=== PATIENT | female | born 1985 | race Caucasian/White ===

== ENCOUNTER 2022-07-31 23:34 | Inpatient (IN) | payer BC ==
[~2022-07-31 23:34] MED LIST: Bupivacaine 0.5% 10 ML VIAL ONE
[2022-08-01 00:03] VITALS: BMI 29.2
[2022-08-01] MEDS ORDERED: Ondansetron PF 4 MG/2 ML Vial IVP PRN ×2 (01:22→02:32)
[2022-08-01] MEDS ORDERED: Promethazine HCl 25 MG/ML VIAL IM PRN ×3 (01:22→20:08)
[2022-08-01] MEDS ORDERED: hydrALAZINE 20 MG/ML VIAL SLOW IVP PRN ×2 (01:22→20:08)
[2022-08-01] MEDS ORDERED: Lidocaine 1% (PF) 30 ML VIAL SC PRN (01:22)
[2022-08-01] MEDS ORDERED: Misoprostol 200 MCG TAB PR PRN (01:22)
[2022-08-01] MEDS ORDERED: Ibuprofen 800 MG TAB PO PRN (01:22)
[2022-08-01] MEDS ORDERED: Lactated Ringer's 1,000 ML IV SCH (01:30)
[2022-08-01] MEDS ORDERED: NS w/ Oxytocin 30 units 500 ML IV SCH (01:30)
[2022-08-01] MEDS ORDERED: Penicillin G Potassium 5 MILL.UNITS in Sodium Chloride 0.9% 100 ML IVPB SCH (01:30)
[2022-08-01 01:40] LABS: Hemoglobin 10.8 g/dL (12.0-15.5); Mean Corpuscular HGB CONC 33.4 g/dL (32.0-36.0); Mean Corpuscular Hemoglobin 28.1 pg (27.0-33.0); Mean Corpuscular Volume 83.9 fl (81.6-98.3); Mean Platelet Volume 10.4 fl (7.4-10.4); Platelet Count 309 10x3/uL (150-450); RBC Distribution Width 12.1 % (11.5-14.5); Red Blood Cell (RBC) Count 3.85 10x6/uL (3.90-5.03)
[2022-08-01] MEDS ORDERED: Fentanyl 2 mcg/Bup 0.1% Cadd 100 ML ONE (01:57)
[2022-08-01 02:14] LABS: Syphilis Antibody Nonreactive (Nonreactive); Syphilis Antibody Index 0.05 S/CO (<1.00 Non-Reactive)
[2022-08-01 02:16] LABS: HBSAg Index 0.17 S/CO (0-0.99); Hep B Surf Ag Non-Reactive S/CO (NonReactive)
[2022-08-01] MEDS ORDERED: Meperidine HCl/PF 25 MG/ML VIAL SLOW IVP PRN (02:32)
[2022-08-01] MEDS ORDERED: Acetaminophen 325 MG TAB PO PRN (02:32)
[2022-08-01] MEDS ORDERED: Naloxone HCl 0.4 mg/ml Vial IVP PRN ×2 (02:32)
[2022-08-01] MEDS ORDERED: diphenhydrAMINE 50 MG/ML VIAL IVP PRN (02:32)
[2022-08-01] MEDS ORDERED: Ondansetron HCl/PF 4 MG/2 ML Vial IVP PRN (02:32)
[2022-08-01] MEDS ORDERED: Moisturizing Cream (Eucerin) 113 GM JAR TOP PRN (02:32)
[2022-08-01] MEDS ORDERED: Lactated Ringer's 500 ML IV PRN (02:32)
[2022-08-01] MEDS ORDERED: ePHEDrine Sulfate 50 MG/10 ML VIAL SLOW IVP PRN (02:32)
[2022-08-01] MEDS ORDERED: Fentanyl 100 MCG/2 ML VIAL SLOW IVP PRN (02:32)
[2022-08-01] MEDS ORDERED: Communication Order-Pharmacy FS SCH (02:45)
[2022-08-01] MEDS ORDERED: Fentanyl 2 mcg/Bupivacaine 0.1% Cassette 100 ML EPIDURAL SCH (02:45)
[2022-08-01] MEDS ORDERED: Ketorolac Tromethamine 30 MG/ML VIAL IVP SCH (02:45)
[2022-08-01] MEDS ORDERED: Penicillin G 2.5 MILL.units 2.5 MILL.UNITS in Premix Bag 1 BAG IVPB SCH (05:00)
[2022-08-01] MEDS ORDERED: Lanolin Ointment 7 GM TUBE TOP PRN (20:08)
[2022-08-01] MEDS ORDERED: Boostrix 0.5 ML (Tdap) VIAL (>/=7 yrs of age) IM ONE (20:08)
[2022-08-01] MEDS ORDERED: Benzocaine-Menthol 82.5 ML CAN TOP PRN (20:08)
[2022-08-01] MEDS ORDERED: Milk Of Magnesia 30 ML UDCUP PO PRN (20:08)
[2022-08-01] MEDS ORDERED: Bisacodyl 10 MG SUPP PR PRN (20:08)
[2022-08-01] MEDS: Docusate 100 MG CAP PO SCH (21:22)
[2022-08-01] MEDS: Ibuprofen 800 MG TAB PO SCH (21:23)
[2022-08-02] MEDS: Ibuprofen 800 MG TAB PO SCH (05:40)
[2022-08-02] MEDS ORDERED: Ferrous Sulfate 325 MG TAB PO SCH (08:00)
[2022-08-02 08:15] VITALS: BP 115/70; TEMP 97.6
[2022-08-02] MEDS: Docusate 100 MG CAP PO SCH (08:43)
[2022-08-02] MEDS ORDERED: Prenatal Vitamin 1 TAB PO SCH (09:00)
== END 2022-08-02 12:00 | disposition home or self-care (01) | DRG 805 ==
LOC: CSHLD/OP 23:34 → CSHLD 08-01 00:12 → CSHPP 08-01 05:41
PROVIDERS: ADMIT Obstetrics & Gynecology; ATTEND Obstetrics & Gynecology
PROC: 10E0XZZ Delivery of Products of Conception, External Approach (ICD-10-PCS; principal; 2022-08-01)
PROC: 10D17Z9 Manual Extraction of Products of Conception, Retained, Via Natural or Artificial Opening (ICD-10-PCS; 2022-08-01)
DX: O42.013 Preterm premature rupture of membranes, onset of labor within 24 hours of rupture, third trimester (principal); O60.14X0 Preterm labor third trimester with preterm delivery third trimester, not applicable or unspecified; Z37.0 Single live birth; Z3A.35 35 weeks gestation of pregnancy; K21.9 Gastro-esophageal reflux disease without esophagitis; F41.9 Anxiety disorder, unspecified; O99.344 Other mental disorders complicating childbirth; O99.62 Diseases of the digestive system complicating childbirth; Z79.899 Other long term (current) drug therapy
CPT/HCPCS: 85027; 86762; 86780; 86850; 86900; 86901; 87340; 99285; J2540; J3490